=== PATIENT | female | born 1965 | race African-American/Black ===

== ENCOUNTER 2016-11-07 09:33 | Outpatient (CLI) | payer MEDICARE, OTHER ==
[~2016-11-07 09:33] MED LIST: ACYCLOVIR400 MG ORAL; ASPIR 8181 MG PO; CATAPRES0.3 MG ORAL; CYCLOBENZAPRINE10 MG PO; DILAUDID2 MG ORAL; DURAGESIC1 E3 TD; HYDRALAZINE HCL50 MG PO; LABETALOL HCL200 MG ORAL; LACTULOSE20 GM/301 PO; LORAZEPAM1 MG PO; MEGACE ES625 MG/5 M PO; NIFEDIPINE20 MG PO; NORVASC10 MG ORAL; OXANDRIN10 MG PO; OXYCODONE HCL40 MG ORAL; PANTOPRAZOLE SO40 MG ORAL; PREDNISONE10 M2 PO; PRILOSEC40 MG ORAL; RENVELA0.8 GM ORAL; SENSIPAR30 MG ORAL
--- NOTE | 2016-11-07 11:09 | Diagnostic Imaging Report ---
Indications: Left lower quadrant abdominal pain, renal failure Technique: Transabdominal real-time grayscale and duplex Doppler imaging of the upper abdomen and retroperitoneum was performed. Findings: Comparison: 10/16/12. Liver normal size and surface contour, diffusely coarsened parenchymal echogenicity. No focal lesions. Gallbladder unremarkable. No intraluminal stones or sludge. No mural thickening or adjacent fluid collections. Sonographic Kwok sign negative.. Bile ducts mildly prominent within liver. Common bile duct 6 mm. Pancreas head and body unremarkable; tail obscured. Spleen unremarkable. Right kidney 4.9 cm, diffuse cortical atrophy and increased echogenicity, one or more circumscribed anechoic cortical foci to 6 mm diameter.. Left kidney 5.9 cm, diffuse cortical atrophy and increased echogenicity, a single circumscribed anechoic cortical focus 9 mm.. Transplant kidney in right iliac fossa 5.3 cm, diffuse cortical atrophy with suggestion of one or more focal calcifications. Abdominal aorta, intrahepatic portion of inferior vena cava patent, normal caliber. Duplex Doppler imaging demonstrates antegrade flow in splenic, portal, hepatic veins. No ascites. IMPRESSION: Liver appearance suggests chronic hepatocellular disease Mild prominence of bile ducts without obvious obstructive etiology, stable. Bilateral atrophic, echogenic [place] and transplant kidneys compatible with end-stage renal disease. Bilateral [place] renal cysts Transplant kidney calcification-vascular versus nephrocalcinosis versus vascular
== END 2016-11-07 11:03 | disposition home or self-care (01) ==
LOC: MAMMO 09:33
DX: R10.32 Left lower quadrant pain (principal); N28.1 Cyst of kidney, acquired; Z94.0 Kidney transplant status; Z12.39 Encounter for other screening for malignant neoplasm of breast
CPT/HCPCS: 76700; G0204; 77066

== ENCOUNTER → 2016-11-14 | Outpatient (CLI) | payer MEDICARE, OTHER ==
--- NOTE | 2016-11-14 10:55 | Diagnostic Imaging Report ---
Indications: Palpable mass upper-outer quadrant right breast for one month; fibrocystic disease per patient; history of right breast biopsy in 2010--benign per patient; history of left breast cyst aspiration in 2005 per patient Technique: Low dose film screen mammograms of both breasts was performed in craniocaudal, mediolateral oblique projections. Compression spot imaging of the right breast performed in craniocaudal and mediolateral oblique projections. Skin marker placed over area of palpable abnormality. Patient returned on 11/14/16 for a targeted ultrasound of the right breast. Findings: Comparison: 12/13/2013; 06/09/2012 Skin and nipples remain unremarkable. Axillae remain unremarkable. Parenchyma heterogeneously dense with multiple circumscribed nodular foci of increased parenchymal density throughout both breasts, including 4 cm density corresponding to area of palpable abnormality, all unchanged. Skin marker clip again noted in 12:00 position of right breast. Bilateral benign-appearing parenchymal calcifications are unchanged. No new mass, architectural distortion, suspicious microcalcifications, or other abnormalities identified. Targeted ultrasound of the right breast demonstrates an elongated, circumscribed, smoothly marginated, solid masslike focus of heterogeneous parenchymal echogenicity in the 10:00 position, corresponding to palpable and mammographic finding, 4.1 x 1.2 4.1 cm. It is much wider than tall, demonstrates no posterior shadowing, it is avascular on color Doppler imaging. IMPRESSION: Circumscribed area of parenchymal heterogeneity in upper-outer quadrant of right breast as described, corresponding to palpable abnormality, compatible with island of prominent fibroglandular tissue, mammographically stable since at least 2011, sonographic characteristics benign No evidence of malignancy, unchanged BI-RADS category 2: Benign finding(s) Breast density BI-RADS type C. Recommendation: Routine screening mammography. Dense parenchyma may obscure pathology. This report should not deter further evaluation of any clinically suspicious findings.
== END | disposition home or self-care (01) ==
LOC: ULS 09:16
DX: N63 Unspecified lump in breast (principal)

== ENCOUNTER 2017-10-16 12:14 | Outpatient (CLI) | payer MEDICARE, OTHER ==
--- NOTE | 2017-10-16 16:23 | Diagnostic Imaging Report ---
Clinical Indication: Abdominal pain x3 weeks, history of renal failure and lupus Technique: Patient given oral contrast. IV administration nonionic contrast. Venous phase spiral acquisition obtained through the abdomen and pelvis. Multiplanar reconstructions were generated. Total dose length product 589.4 mGycm. CTDIvol(s) 12.1 mGy. Dose reduction achieved using automated exposure control Comparison: 10/16/2012 Findings: Patient is considerably less edematous than on the prior exam, and there is better contrast opacification. No evidence of diverticulosis or diverticulitis is demonstrated. The appendix is normal. Contrast is seen throughout the entirety of the small bowel and into the proximal colon. Small bowel loops are nondilated. There is no evidence of free intraperitoneal air or fluid. The distal esophagus, stomach, duodenum are unremarkable. There is a tiny fat-containing umbilical hernia. The liver is unremarkable. No gallstones are demonstrated. There is mild prominence to the extrahepatic and central intrahepatic bile ducts which is unchanged from the prior study. Pancreas, spleen, adrenals are unremarkable. Both kidneys are atrophic. A calcified and cystic density in the right lower quadrant is again demonstrated, presumably represents an old transplant kidney. No pelvic mass or adenopathy. Uterus and adnexal structures are unremarkable. The included lung bases are clear. The bones demonstrate diffuse sclerosis which is similar to the previous exam although somewhat more striking. Impression: No acute abnormality Previously demonstrated anasarca is no longer evident Mild prominence and extra hepatic and central intrahepatic bile ducts without evidence of downstream obstructive lesion, unchanged from prior study and likely baseline for this patient. Nonetheless, correlation with liver function tests is recommended Atrophic bilateral kidneys, consistent with stated history of chronic renal disease. Old atrophic right lower quadrant transplant kidney again demonstrated Diffuse bony sclerosis, consistent with renal osteodystrophy, progressive since prior study Incidental finding of small fat-containing umbilical hernia The CT scanner at [facility] is accredited by the [employer] and the scans are performed using protocols designed to limit radiation exposure to as low as reasonably achievable to attain images of sufficient resolution adequate for diagnostic evaluation.
== END 2017-10-16 14:14 | disposition home or self-care (01) ==
LOC: CAT 12:14
DX: R10.9 Unspecified abdominal pain (principal); Z94.0 Kidney transplant status; K42.9 Umbilical hernia without obstruction or gangrene; N18.9 Chronic kidney disease, unspecified
CPT/HCPCS: 74177; Q9967